=== PATIENT | male | born 1990 | race Caucasian/White ===

== ENCOUNTER 2017-11-29 14:43 | Emergency (ER) | payer MEDICAID | END 2017-11-29 16:53 | disposition home or self-care (01) | LOC: M ED 14:43 | DX: J02.9 Acute pharyngitis, unspecified (principal); K02.9 Dental caries, unspecified; B34.9 Viral infection, unspecified; F33.9 Major depressive disorder, recurrent, unspecified; F90.9 Attention-deficit hyperactivity disorder, unspecified type; Z88.8 Allergy status to other drugs, medicaments and biological substances; F17.210 Nicotine dependence, cigarettes, uncomplicated | CPT/HCPCS: 87880 ==

== ENCOUNTER → 2017-12-08 | Outpatient (CLI) | payer MEDICAID | LOC: M RAD 12:17 | DX: R05 Cough (principal) | CPT/HCPCS: 71046 ==

== ENCOUNTER 2018-02-18 15:32 | Emergency (ER) | payer MEDICAID, SELFPAY, OTHER ==
[2018-02-18] MEDS: ACETAMINOPHEN TAB 650MG DOSE (2X325MG) PO ×2 (17:30)
== END 2018-02-18 18:00 | disposition home or self-care (01) ==
LOC: M ED 15:32
DX: S60.221A Contusion of right hand, initial encounter (principal); W22.09XA Striking against other stationary object, initial encounter; Y92.410 Unspecified street and highway as the place of occurrence of the external cause; Z88.8 Allergy status to other drugs, medicaments and biological substances
CPT/HCPCS: 73130

== ENCOUNTER 2018-03-07 18:40 | Emergency (ER) | payer MEDICAID, SELFPAY ==
[2018-03-07] MEDS: NORCO, ANEXSIA 5/325MG TABLET (HYDROcodone/ACETAMINOPHEN) PO ×2 (21:03)
== END 2018-03-07 23:17 | disposition home or self-care (01) ==
LOC: M ED 23:17
DX: S00.83XA Contusion of other part of head, initial encounter (principal); W22.8XXA Striking against or struck by other objects, initial encounter; Y92.018 Other place in single-family (private) house as the place of occurrence of the external cause; I25.2 Old myocardial infarction; Z88.8 Allergy status to other drugs, medicaments and biological substances; F17.210 Nicotine dependence, cigarettes, uncomplicated
CPT/HCPCS: 70450

== ENCOUNTER 2018-05-28 11:04 | Emergency (ER) | payer MEDICAID, OTHER ==
[~2018-05-28] VITALS: Ht 185.4 cm; Wt 79.1 kg
[2018-05-28] MEDS ORDERED: NS 1,000 ML IV ONE (11:45)
[2018-05-28 12:08] LABS: BASO # 0.1 10^3/uL (0.0-0.2); BASO % 0.9 % (0.0-1.0); EOS # 0.2 10^3/uL (0.0-0.50); EOS % 4.1 % (0.0-3.0); HEMATOCRIT 41.1 % (42.0-52.0); HEMOGLOBIN 14.3 g/dl (13.5-17.5); LYMPH # 1.4 10^3/uL (1.5-6.5); MEAN CORPUSCULAR HEMOGLOBIN 31.2 pg (27.0-33.0); MEAN CORPUSCULAR HGB CONC 34.8 g/dl (32.0-36.5); MEAN CORPUSCULAR VOLUME 89.5 fl (80.0-96.0); MONO # 0.4 10^3/uL (0.0-0.8); MONO % 6.6 % (0.0-5.0); NEUTROPHILS # 3.7 10^3/uL (1.8-7.7); NEUTROPHILS % 64.1 % (36.0-66.0); PLATELET COUNT, AUTOMATED 230 10^3/uL (150-450); RED BLOOD COUNT 4.59 10^6/uL (4.30-6.10); WHITE BLOOD COUNT 5.8 10^3/uL (4.0-10.0)
--- NOTE | 2018-05-28 12:21 | REP ---
Portable chest: Single view. History: Chest pain Comparison study: December 08, 2017. Findings: The lungs are well inflated and clear. The pleural angles are sharp. Heart size is normal. EKG monitoring electrodes are seen. Pulmonary vasculature is not increased. No significant bony abnormality. Impression: Negative portable chest x-ray. Electronically Signed by Lalito Flynn MD 05/28/2018 12:13 P
[2018-05-28 12:26] LABS: INR 0.96; PROTHROMBIN TIME 12.9 SECONDS (12.1-14.4)
[2018-05-28 12:27] LABS: PARTIAL THROMBOPLASTIN TIME 30.5 SECONDS (25.4-37.6)
[2018-05-28 12:49] LABS: ALBUMIN 3.9 GM/DL (3.2-5.2); ALT/SGPT 26 U/L (12-78); BILIRUBIN,DIRECT 0.1 MG/DL (0.0-0.2); BILIRUBIN,TOTAL 0.3 MG/DL (0.2-1.0); BLOOD UREA NITROGEN 10 MG/DL (7-18); CALCIUM LEVEL 8.6 MG/DL (8.5-10.1); CARBON DIOXIDE LEVEL 27 MEQ/L (21-32); CHLORIDE LEVEL 106 MEQ/L (98-107); CK-MB VALUE MASS < 1.0 NG/ML (<3.6); CPK CREATINE PHOSPHOKINASE 228 U/L (39-308); FREE T4 0.92 NG/DL (0.76-1.46); GLOMERULAR FILTRATION RATE > 60.0 (>60); GLUCOSE, FASTING 90 MG/DL (70-100); LIPASE 68 U/L (73-393); MB/CK RELATIVE INDEX 0.44 (< OR =4); POTASSIUM SERUM 4.3 MEQ/L (3.5-5.1); SODIUM LEVEL 140 MEQ/L (136-145); THYROID STIMULATING HORMONE 0.744 uIU/ML (0.358-3.740); TOTAL PROTEIN 6.5 GM/DL (6.4-8.2); TROPONIN I < 0.02 NG/ML (< 0.10)
[2018-05-28 13:00] LABS: APPEARANCE, URINE CLEAR (CLEAR); BACTERIA, URINE AUTO NEGATIVE (NEGATIVE); BILIRUBIN, URINE AUTO NEGATIVE (NEGATIVE); BLOOD, URINE BLOOD NEGATIVE (NEGATIVE); COLOR, URINE YELLOW (YELLOW); GLUCOSE, URINE (UA) AUTO NEGATIVE (NEGATIVE); KETONE, URINE AUTO NEGATIVE (NEGATIVE); LEUKOCYTE ESTERASE, URINE AUTO NEGATIVE (NEGATIVE); NITRITE, URINE AUTO NEGATIVE (NEGATIVE); PROTEIN, URINE AUTO NEGATIVE (NEGATIVE); RBC, URINE AUTO 0 /HPF (0-3); SPECIFIC GRAVITY URINE AUTO 1.019 (1.002-1.035); SQUAMOUS EPITHELIAL CELL UR AU 0 /HPF (0-6); UROBILINOGEN, URINE AUTO 0.2 mg/dL (0.0-2.0); WBC, URINE AUTO 0 /HPF (0-3)
[2018-05-28] MEDS ORDERED: ISOVUE-370 76% 100ML VIAL (Q9967) As Ordered ONE (13:16)
[2018-05-28 13:45] VITALS: BP 111/68
--- NOTE | 2018-05-28 14:02 | REP ---
CT pulmonary angiogram: With IV contrast. History: Chest pain Comparison studies: No comparison study. Contrast dose: 75 cc's of Isovue [address] technique: Helical scanning is acquired and overlapping 1.5 mm and contiguous 3 mm axial images are reformatted. In addition, maximum intensity projection and multiplanar re-formation images are generated in sagittal and coronal imaging projections. CT pulmonary angiographic findings: There is good opacification of the pulmonary arterial tree. There is no CT evidence of pulmonary embolus. Maximal intensity projection images show no filling defect or vessel cutoff. The thoracic aorta enhances homogeneously as well. There is no evidence of aneurysm or dissection. No mediastinal mass or adenopathy is observed. No pleural or pericardial effusion is seen. The lung archuleta are clear. There is a granulomatous calcification in the left upper lobe peripherally. No significant bony abnormality is appreciated. Impression: No CT evidence of pulmonary embolus. Negative CT pulmonary angiogram with IV contrast. Electronically Signed by Lalito Flynn MD 05/28/2018 01:53 P
--- NOTE | 2018-05-28 20:06 | ECGEPIP ---
Stationary ECG Study [facility] - ED Test Date: 2018-05-28 Pat Name: REMY VERONICA Department: Room: - Gender: M Manager Of Engineering: steve : 1990 Requested By: Zac Taveras Order Number: [id number] Reading MD: Zac Taveras Measurements Intervals [place] Rate: 56 P: 56 IN: 177 QRS: 54 QRSD: 96 T: 30 QT: 367 QTc: 355 Interpretive Statements SINUS BRADYCARDIA DIFFUSE MILD ST ELEVATION - ?EARLY REPOLARIZATION NO OLD ECG FOR COMAPRISON Electronically Signed On 05-28-2018 20:05:54 EST by Zac Taveras
== END 2018-05-28 14:31 | disposition home or self-care (01) ==
LOC: M ED 11:04
DX: T75.4XXA Electrocution, initial encounter (principal); R07.9 Chest pain, unspecified; R11.0 Nausea; R06.02 Shortness of breath; X58.XXXA Exposure to other specified factors, initial encounter; Y92.89 Other specified places as the place of occurrence of the external cause; I25.2 Old myocardial infarction; F90.9 Attention-deficit hyperactivity disorder, unspecified type; F43.10 Post-traumatic stress disorder, unspecified; F41.9 Anxiety disorder, unspecified; F32.9 Major depressive disorder, single episode, unspecified; F91.3 Oppositional defiant disorder; F17.200 Nicotine dependence, unspecified, uncomplicated; Z91.040 Latex allergy status; Z88.8 Allergy status to other drugs, medicaments and biological substances
CPT/HCPCS: 71045; 71275; 80048; 80076; 81001; 81002; 82550; 82553; 83690; 84439; 84443; 85025; 85610; 85730; 93005; 93041; 94760; 99285; Q9967

== ENCOUNTER → 2018-08-23 | Outpatient (CLI) | payer OTHER ==
[~2018-08-23] MED LIST: PENI500T PO; PERC5TAB12 PO
--- NOTE | 2018-08-23 20:18 | REP ---
Cervical spine series: Limited study three views. History: Chronic neck pain. Findings: There is straightening of the normal cervical lordosis. Vertebral body heights and disc spaces are maintained. Alignment is normal. Pedicles and posterior elements are intact. Prevertebral soft tissues are unremarkable. Open mouth odontoid and AP views are unremarkable. Impression: Straightening. Otherwise negative radiographs of the cervical spine. Electronically Signed by Lalito Flynn MD 08/24/2018 07:40 A
== END ==
LOC: M RAD 17:52
PROVIDERS: ATTEND Family Medicine Addiction Medicine
DX: M54.2 Cervicalgia (principal)

== ENCOUNTER 2018-08-25 08:56 | Emergency (ER) | payer OTHER ==
[~2018-08-25] VITALS: Ht 185.4 cm; Wt 78.8 kg
[2018-08-25 09:00] VITALS: BP 131/70
[2018-08-25] MEDS ORDERED: PENI500T PO (09:23)
[2018-08-25] MEDS ORDERED: PERC5TAB12 PO (09:24)
== END 2018-08-25 09:36 | disposition home or self-care (01) ==
LOC: M ED 08:56
DX: K04.7 Periapical abscess without sinus (principal); K02.9 Dental caries, unspecified; F17.200 Nicotine dependence, unspecified, uncomplicated; Z98.890 Other specified postprocedural states; Z88.8 Allergy status to other drugs, medicaments and biological substances; Z91.040 Latex allergy status

== ENCOUNTER → 2018-09-15 | Outpatient (CLI) | payer OTHER ==
--- NOTE | 2018-09-15 10:41 | REP ---
RIGHT KNEE, FIVE VIEWS: There is no evidence of an acute fracture, dislocation or intrinsic bone disease. The joint spaces are unremarkable. IMPRESSION: No fracture or dislocation. Electronically Signed by Redd Leon MD 09/15/2018 11:37 A
== END ==
LOC: M ADAMS 09:33
PROVIDERS: ATTEND Physician Assistant Medical
DX: M25.561 Pain in right knee (principal)

== ENCOUNTER → 2019-01-16 | Outpatient (CLI) | payer OTHER ==
[~2019-01-16] MED LIST changes: +CLIN150C14 PO; +MAGICMW SSP
--- NOTE | 2019-01-16 12:41 | REP ---
Clinical: Chronic left shoulder pain . Technique: Internal rotation, external rotation, and Y view left shoulder . Findings: No acute fracture or dislocation. The acromioclavicular and glenohumeral joints are intact. No periarticular calcifications or degenerative changes are appreciated. Sub acromial space is normal. Surrounding soft tissues are unremarkable. Impression: Normal left shoulder radiographs. Electronically Signed by Chris Patel MD 01/16/2019 12:32 P
== END ==
LOC: M WUC 12:19
PROVIDERS: ATTEND Family Medicine
DX: M25.512 Pain in left shoulder (principal)

== ENCOUNTER 2019-01-30 21:45 | Emergency (ER) | payer OTHER ==
[2019-01-30 22:00] VITALS: BP 127/83
== END 2019-01-30 22:27 | disposition home or self-care (01) ==
LOC: M ED 21:45
DX: F43.20 Adjustment disorder, unspecified (principal); F79 Unspecified intellectual disabilities; Z88.8 Allergy status to other drugs, medicaments and biological substances; Z91.040 Latex allergy status; F17.210 Nicotine dependence, cigarettes, uncomplicated

== ENCOUNTER 2019-07-18 10:09 | Emergency (ER) | payer OTHER, SELFPAY ==
[~2019-07-18] VITALS: Ht 185.4 cm; Wt 78.3 kg
[2019-07-18] MEDS ORDERED: DOXYCYCLINE HYCLATE 100 MG TAB PO ONE (11:30)
[2019-07-18] MEDS ORDERED: ACETAMINOPHEN 325 MG TAB PO ONE (11:30)
[2019-07-18] MEDS ORDERED: DOXY100C37 PO (11:31)
[2019-07-18 11:38] VITALS: BP 121/77
== END 2019-07-18 11:40 | disposition home or self-care (01) ==
LOC: M ED 10:09
DX: H60.12 Cellulitis of left external ear (principal); E11.9 Type 2 diabetes mellitus without complications; F12.10 Cannabis abuse, uncomplicated; F17.200 Nicotine dependence, unspecified, uncomplicated; F32.9 Major depressive disorder, single episode, unspecified; F41.9 Anxiety disorder, unspecified; F43.10 Post-traumatic stress disorder, unspecified; Z79.84 Long term (current) use of oral hypoglycemic drugs; Z88.6 Allergy status to analgesic agent; Z91.040 Latex allergy status

== ENCOUNTER 2019-07-31 20:30 | Emergency (ER) | payer MEDICAID, SELFPAY ==
[~2019-07-31] VITALS: Ht 185.4 cm; Wt 77.2 kg
[~2019-07-31 20:30] MED LIST changes: +DOXY100C37 PO
[2019-07-31] MEDS ORDERED: PERCOCET 5MG/325MG TAB PO ONE (21:45)
[2019-07-31] MEDS ORDERED: PERC5TAB12 PO (22:08)
[2019-07-31 22:17] VITALS: BP 117/63
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
== END 2019-07-31 22:19 | disposition home or self-care (01) ==
LOC: M ED 20:30
DX: S50.11XA Contusion of right forearm, initial encounter (principal); V86.55XA Driver of 3- or 4- wheeled all-terrain vehicle (ATV) injured in nontraffic accident, initial encounter; Y92.89 Other specified places as the place of occurrence of the external cause; E11.9 Type 2 diabetes mellitus without complications; F42.9 Obsessive-compulsive disorder, unspecified; F43.10 Post-traumatic stress disorder, unspecified; F91.3 Oppositional defiant disorder; F90.9 Attention-deficit hyperactivity disorder, unspecified type; Z88.8 Allergy status to other drugs, medicaments and biological substances; Z91.040 Latex allergy status

== ENCOUNTER → 2019-08-07 | Outpatient (REF) | payer MEDICAID, SELFPAY ==
[2019-08-07 13:23] LABS: BASO # 0.1 10^3/uL (0.0-0.2); BASO % 1.1 % (0.0-1.0); EOS # 0.3 10^3/uL (0.0-0.5); EOS % 5.6 % (0.0-3.0); HEMATOCRIT 50.5 % (42.0-52.0); HEMOGLOBIN 17.2 g/dl (13.5-17.5); LYMPH # 1.7 10^3/uL (1.5-5.0); LYMPH % 28.3 % (24.0-44.0); MEAN CORPUSCULAR HEMOGLOBIN 31.4 pg (27.0-33.0); MEAN CORPUSCULAR HGB CONC 34.1 g/dl (32.0-36.5); MEAN CORPUSCULAR VOLUME 92.3 fl (80.0-96.0); MONO # 0.4 10^3/uL (0.0-0.8); NEUTROPHILS # 3.5 10^3/uL (1.5-8.5); NEUTROPHILS % 57.5 % (36.0-66.0); PLATELET COUNT, AUTOMATED 266 10^3/uL (150-450); RED BLOOD COUNT 5.47 10^6/uL (4.30-6.10); WHITE BLOOD COUNT 6.1 10^3/uL (4.0-10.0)
[2019-08-07 13:30] LABS: ALBUMIN 4.2 GM/DL (3.2-5.2); ALT/SGPT 75 U/L (12-78); BILIRUBIN,TOTAL 0.7 MG/DL (0.2-1.0); BLOOD UREA NITROGEN 11 MG/DL (7-18); CALCIUM LEVEL 9.3 MG/DL (8.5-10.1); CARBON DIOXIDE LEVEL 30 MEQ/L (21-32); CHLORIDE LEVEL 105 MEQ/L (98-107); CHOLESTEROL LEVEL 208 MG/DL (<200); CHOLESTEROL RISK RATIO 5.333 (<5); CREATININE FOR GFR 0.88 MG/DL (0.70-1.30); FREE T4 1.02 NG/DL (0.76-1.46); GLOMERULAR FILTRATION RATE > 60.0 (>60); GLUCOSE, FASTING 110 MG/DL (70-100); HDL CHOLESTEROL 39 MG/DL (>40); LDL CHOLESTEROL 136 MG/DL (<100); NON-HDL-C 169 MG/DL; POTASSIUM SERUM 4.6 MEQ/L (3.5-5.1); SODIUM LEVEL 138 MEQ/L (136-145); TOTAL PROTEIN 7.9 GM/DL (6.4-8.2); TRIGLYCERIDES LEVEL 163 MG/DL (<150)
[2019-08-07 13:32] LABS: TOTAL 25(OH) VITAMIN D 13.5 NG/ML (30.0-100.0)
[2019-08-07 13:36] LABS: HEMOGLOBIN A1c 5.7 %
== END ==
LOC: M LAB REF 12:59
PROVIDERS: ATTEND Physician Assistant
DX: E11.9 Type 2 diabetes mellitus without complications (principal); F40.10 Social phobia, unspecified

== ENCOUNTER → 2019-10-28 | Outpatient (CLI) | payer MEDICAID | LOC: M LABSMTC 10:29 | PROVIDERS: ATTEND Anesthesiology | DX: Z03.818 Encounter for observation for suspected exposure to other biological agents ruled out (principal); Z11.59 Encounter for screening for other viral diseases | CPT/HCPCS: C9803; U0003 ==

== ENCOUNTER → 2019-10-28 | Outpatient (CLI) | payer OTHER ==
[~2019-10-28] MED LIST changes: -CLIN150C14 PO; +CLIN150C15 PO; +ONDA4TAB6 PO; +ULTR50TA8 PO
[2019-10-28 10:10] LABS: HEMATOCRIT 46.7 % (42.0-52.0); MEAN CORPUSCULAR HEMOGLOBIN 30.8 pg (27.0-33.0); MEAN CORPUSCULAR HGB CONC 34.3 g/dl (32.0-36.5); MEAN CORPUSCULAR VOLUME 89.8 fl (80.0-96.0); PLATELET COUNT, AUTOMATED 210 10^3/uL (150-450); WHITE BLOOD COUNT 7.7 10^3/uL (4.0-10.0)
[2019-10-28 10:37] LABS: BLOOD UREA NITROGEN 10 MG/DL (7-18); CALCIUM LEVEL 9.2 MG/DL (8.5-10.1); CARBON DIOXIDE LEVEL 30 MEQ/L (21-32); CHLORIDE LEVEL 105 MEQ/L (98-107); CREATININE FOR GFR 0.92 MG/DL (0.70-1.30); GLOMERULAR FILTRATION RATE > 60.0 (>60); GLUCOSE, FASTING 98 MG/DL (70-100); POTASSIUM SERUM 3.8 MEQ/L (3.5-5.1); SODIUM LEVEL 139 MEQ/L (136-145)
== END ==
LOC: M LAB 09:26
PROVIDERS: ATTEND Orthopaedic Surgery
DX: Z01.818 Encounter for other preprocedural examination (principal)

== ENCOUNTER 2019-10-31 15:31 | Day surgery (SDC) | payer OTHER ==
[~2019-10-31] VITALS: Ht 185.4 cm; Wt 75.3 kg
[~2019-10-31 15:31] MED LIST changes: +CLIN150C14 PO; -CLIN150C15 PO; +LR 1,000 ML IV SCH; -ONDA4TAB6 PO; -ULTR50TA8 PO; +ceFAZolin SOD 2 GM in IV 1 EA IV ONE
[2019-10-31 15:57] LABS: HEMATOCRIT 44.8 % (42.0-52.0); HEMOGLOBIN 15.5 g/dl (13.5-17.5); MEAN CORPUSCULAR HEMOGLOBIN 30.7 pg (27.0-33.0); MEAN CORPUSCULAR HGB CONC 34.6 g/dl (32.0-36.5); MEAN CORPUSCULAR VOLUME 88.7 fl (80.0-96.0); PLATELET COUNT, AUTOMATED 221 10^3/uL (150-450); RED BLOOD COUNT 5.05 10^6/uL (4.30-6.10); WHITE BLOOD COUNT 8.7 10^3/uL (4.0-10.0)
[2019-10-31 16:25] LABS: BLOOD UREA NITROGEN 11 MG/DL (7-18); CALCIUM LEVEL 9.3 MG/DL (8.5-10.1); CARBON DIOXIDE LEVEL 29 MEQ/L (21-32); CHLORIDE LEVEL 104 MEQ/L (98-107); CREATININE FOR GFR 0.96 MG/DL (0.70-1.30); GLOMERULAR FILTRATION RATE > 60.0 (>60); GLUCOSE, FASTING 83 MG/DL (70-100); POTASSIUM SERUM 3.8 MEQ/L (3.5-5.1); SODIUM LEVEL 138 MEQ/L (136-145)
[2019-10-31] MEDS ORDERED: propofoL 200 MG/20 ML VIAL As Ordered ONE ×3 (17:41→19:37)
[2019-10-31] MEDS ORDERED: ONDANSETRON 4MG/2ML VIAL As Ordered ONE (17:42)
[2019-10-31] MEDS ORDERED: LIDOCAINE 2% 100MG/5ML SDV (FOR ANES.) As Ordered ONE (17:42)
[2019-10-31] MEDS ORDERED: fentaNYL 100 MCG/2 ML INJECTION (J3010) As Ordered ONE ×2 (17:42→18:32)
[2019-10-31] MEDS ORDERED: dexameTHASONE 4 MG/ML 1ML VIAL (J1100 PER 1MG) As Ordered ONE (17:42)
[2019-10-31] MEDS ORDERED: MIDAZOLAM INJ 2MG/2ML VIAL (J2250 PER 1MG) As Ordered ONE ×3 (18:32→21:56)
[2019-10-31] MEDS ORDERED: MIDAZOLAM INJ 2MG/2ML VIAL (J2250 PER 1MG) IV ONE (20:30)
[2019-10-31] MEDS ORDERED: fentaNYL 100 MCG/2 ML INJECTION (J3010) IV ONE (20:30)
[2019-10-31] MEDS ORDERED: ACETAMINOPHEN 1000MG 100ML IV BTL (OFIRMEV) (J0131 PER 10MG) As Ordered ONE (21:55)
[2019-10-31] MEDS ORDERED: BUPIVACAINE HCL 0.5% 10ML VIAL As Ordered ONE (22:03)
[2019-10-31] MEDS ORDERED: fentaNYL 100 MCG/2 ML INJECTION (J3010) IV PRN (23:00)
[2019-10-31] MEDS ORDERED: HYDROMORPHONE HCL 0.5 MG/ 0.5 ML SYRINGE (J1170 PER 1) IV PRN (23:00)
[2019-10-31] MEDS ORDERED: LR 1,000 ML IV SCH ×2 (23:00)
[2019-10-31] MEDS ORDERED: ONDANSETRON 4MG/2ML VIAL IV PRN (23:00)
[2019-10-31] MEDS ORDERED: oxyCODONE 5MG TAB PO PRN (23:00)
[2019-10-31 23:43] VITALS: BP 112/77
--- NOTE | 2019-11-01 08:28 | REP ---
LEFT KNEE: THREE VIEWS. INTRAOPERATIVE IMAGING. HISTORY: Left knee arthroscopic surgery. 7.8 seconds of fluoroscopy time is reported. FINDINGS: A sequence of three fluoroscopically obtained intraprocedural spot radiographs of the knee document procedural manipulation. No laterality markers are visible. Electronically Signed by Lalito Flynn MD 11/01/2019 10:32 A
--- NOTE | 2019-11-04 16:10 | RO ---
DATE OF SURGERY: 10/31/2019 PREOPERATIVE DIAGNOSES: 1. Recurrent left knee patellar instability. 2. Left knee patellar chondromalacia. POSTOPERATIVE DIAGNOSES: 1. Recurrent left knee patellar instability. 2. Left knee patellar chondromalacia. PROCEDURE: 1. Left knee diagnostic arthroscopy. 2. Left knee open medial patellofemoral ligament reconstruction with allograft. SURGEON: Dr. Emmanuel Casey MONITOR WORKER: JENAE Celeste ANESTHESIA: General with preoperative nerve block. IV FLUIDS: Lactated Ringer's. ESTIMATED BLOOD LOSS: 5 mL. IMPLANTS: Arthrex 3 mm suture tack times two and Arthrex 5.5 mm corkscrew times one and gracilis allograft. CLOSURE: Nylon. DESCRIPTION OF PROCEDURE: Patient identified in the preoperative holding area. The left leg was marked by myself. He had an adductor canal block by anesthesia. He was brought to the operating room and placed supine on a well-padded OR table. General anesthesia was induced. He received appropriate IV antibiotics within 1 hour of incision. Exam under anesthesia revealed range of motion from zero to 140 degrees stable to varus-valgus stress, grade 1 A Hermelindo, negative posterior drawer. He had three quadrants of lateral patellar mobility to soft endpoint. Negative J sign. A well-padded tourniquet was applied a left side. The left leg was then prepped and draped in normal sterile fashion with Chloraprep from the toes up to the tourniquet. Prior to incision, time-out was performed per hospital protocol. Brittany Felipe was present for the entire procedure and participated in all essential portions of procedure. This included patient positioning and draping, holding retractors and assisting with drilling to place anchors and assisted with suturing the allograft on the back table, and performed the wound closure and applying the dressing. The left leg was exsanguinated with an Esmarch bandage and tourniquet inflated to 275 mmHg. A standard anterolateral portal created with an 11-blade. 30 degree arthroscope was introduced into the joint. There was some slightly hazy fluid consistent with a small inflammatory effusion. Diagnostic arthroscopy carried out revealing diffuse mild to moderate synovitis. There was only minimal chondromalacia in the patella. Trochlea was in good condition. No loose bodies. Medial compartment was entered where there was grade 1 chondromalacia in the medial femoral condyle. Medial meniscus was intact without tearing, anterior cruciate ligament (ACL) was intact, and then the lateral compartment inspected. No lateral meniscus tears. No significant chondromalacia. The knee was irrigated and drained. We then proceeded with a mid longitudinal incision with a 15-blade along the medial border of patella. Sharp dissection down to the patella. An anterior periosteal flap was raised. Hemostat was used to develop the plane between layers two and three of the medial retinaculum extending towards the medial epicondyle. I then used a rongeur to create a trough in the medial border of patella. I drilled and placed two Arthrex 3 mm double-loaded suture tack anchors. One at the equator, one a centimeter proximal. The allograft on the back table had 2-0 FiberWire whipstitch to each end. The central portion of the allograft was then secured to the medial border of patella using a curve free needle and the sutures from the anchors. All four limbs of suture were passed and then knots tied by hand, which secured the graft nicely to the trough. Excess suture trimmed and discarded. The tails of the allograft were then passed using a passing suture out the medial incision. A separate incision made a 15-blade between the adductor tubercle and medial condyle. Dissection with extra cautery down to the deep fascia. The patient had very little adipose tissues. He had good bony anatomy. The K-wire was placed at the medial femoral condyle between the adductor tubercle and medial epicondyle and appropriate position confirmed on AP and lateral views using the large C-arm. Relative to the final C-arm image on the lateral view the K-wire was just anterior from the anatomic position, so the punch for the corkscrew anchor was placed just posterior to that and then the tap used. A 5.5 corkscrew anchor was placed with excellent fixation. Next, these sutures from corkscrew were used to tie down each limb of the allograft with the knee in 40 degrees of flexion. It was up on a triangle. Prior to tying knots, I did assess lateral patellar translation and he was found to have just under two quadrants of lateral patellar mobility at zero, 10, 20, 30 and 40 degrees. A total of five locking passes were made with the FiberWire and TigerWire. The free limb was used to reduce the tendon to the anchor and then knots tied by hand. Excess graft and suture was cut and discarded. All incisions were extensively irrigated. The arthrotomy was closed with #0 Vicryl suture in a [id number] fashion. Final check of lateral patellar translation revealed unchanged 1-1/2 quadrants of lateral patellar mobility. I flexed the knee up to 120 degrees. There was no change. We then closed with #2-0 Vicryl, running #3-0 nylon. The portal was closed with nylon. I injected 10 mL of 0.5% Marcaine without epinephrine at the incisions. Bulky sterile dressing applied. Tourniquet let down at 76 minutes. He was carefully placed into his knee brace locked in extension. At the time of this dictation, he has been extubated and shortly he will be transferred to the postanesthesia care unit (PACU).
== END 2019-10-31 23:56 | disposition home or self-care (01) ==
LOC: M SDC 15:31
PROVIDERS: ATTEND Orthopaedic Surgery
DX: M25.362 Other instability, left knee (principal); M94.262 Chondromalacia, left knee; E11.9 Type 2 diabetes mellitus without complications; F43.10 Post-traumatic stress disorder, unspecified; F42.9 Obsessive-compulsive disorder, unspecified; F41.9 Anxiety disorder, unspecified; F32.9 Major depressive disorder, single episode, unspecified; F60.9 Personality disorder, unspecified
CPT/HCPCS: 27427; 29870; 36415; 64447; 76000; 80048; 85027; C1713; C1762; J0131; J0690; J1100; J2250; J2405; J3010

== ENCOUNTER → 2019-11-10 | Outpatient (REF) | payer OTHER, MEDICAID ==
[~2019-11-10] MED LIST changes: -LR 1,000 ML IV SCH; -ceFAZolin SOD 2 GM in IV 1 EA IV ONE
[2019-11-10 13:14] LABS: ALBUMIN 4.4 GM/DL (3.2-5.2); ALT/SGPT 34 U/L (12-78); BILIRUBIN,TOTAL 0.3 MG/DL (0.2-1.0); BLOOD UREA NITROGEN 16 MG/DL (7-18); CALCIUM LEVEL 9.5 MG/DL (8.5-10.1); CARBON DIOXIDE LEVEL 28 MEQ/L (21-32); CHLORIDE LEVEL 106 MEQ/L (98-107); CHOLESTEROL LEVEL 217 MG/DL (<200); CREATININE FOR GFR 0.86 MG/DL (0.70-1.30); GLOMERULAR FILTRATION RATE > 60.0 (>60); GLUCOSE, FASTING 99 MG/DL (70-100); HDL CHOLESTEROL 35 MG/DL (>40); LDL CHOLESTEROL 146 MG/DL (<100); NON-HDL-C 182 MG/DL; POTASSIUM SERUM 4.2 MEQ/L (3.5-5.1); SODIUM LEVEL 139 MEQ/L (136-145); TOTAL PROTEIN 7.8 GM/DL (6.4-8.2); TRIGLYCERIDES LEVEL 179 MG/DL (<150)
[2019-11-10 13:15] LABS: BASO # 0.1 10^3/uL (0.0-0.2); EOS # 0.4 10^3/uL (0.0-0.5); HEMOGLOBIN 16.7 g/dl (13.5-17.5); LYMPH # 1.4 10^3/uL (1.5-5.0); LYMPH % 19.7 % (24.0-44.0); MEAN CORPUSCULAR HEMOGLOBIN 30.9 pg (27.0-33.0); MEAN CORPUSCULAR HGB CONC 33.4 g/dl (32.0-36.5); MEAN CORPUSCULAR VOLUME 92.4 fl (80.0-96.0); MONO # 0.4 10^3/uL (0.0-0.8); MONO % 5.6 % (0.0-5.0); NEUTROPHILS % 68.3 % (36.0-66.0); PLATELET COUNT, AUTOMATED 292 10^3/uL (150-450); RED BLOOD COUNT 5.41 10^6/uL (4.30-6.10); WHITE BLOOD COUNT 7.3 10^3/uL (4.0-10.0)
[2019-11-10 14:14] LABS: HEMOGLOBIN A1c 5.9 %
== END ==
LOC: M LAB REF 12:26
PROVIDERS: ATTEND Nurse Practitioner Family
DX: E78.5 Hyperlipidemia, unspecified (principal); E11.9 Type 2 diabetes mellitus without complications; M25.512 Pain in left shoulder

== ENCOUNTER 2019-11-12 00:16 | Emergency (ER) | payer MEDICAID, OTHER ==
[~2019-11-12] VITALS: Ht 185.4 cm; Wt 76.4 kg
[2019-11-12 00:16] VITALS: BP 132/67
[2019-11-12] MEDS ORDERED: traMADol 50 MG TAB PO ONE (03:30)
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
== END 2019-11-12 04:19 | disposition home or self-care (01) ==
LOC: M ED 00:16
DX: G89.18 Other acute postprocedural pain (principal); S89.82XA Other specified injuries of left lower leg, initial encounter; Z88.8 Allergy status to other drugs, medicaments and biological substances; Z91.040 Latex allergy status; W18.09XA Striking against other object with subsequent fall, initial encounter; Y92.009 Unspecified place in unspecified non-institutional (private) residence as the place of occurrence of the external cause; Y93.89 Activity, other specified; Y99.8 Other external cause status; E11.9 Type 2 diabetes mellitus without complications; F31.9 Bipolar disorder, unspecified; F41.9 Anxiety disorder, unspecified; Z91.14 Patient's other noncompliance with medication regimen

== ENCOUNTER 2019-12-12 21:21 | Emergency (ER) | payer OTHER | END 2019-12-12 23:30 | disposition left against medical advice (07) | LOC: M ED 21:21 | DX: Z53.21 Procedure and treatment not carried out due to patient leaving prior to being seen by health care provider (principal) ==

== ENCOUNTER 2020-01-27 17:07 | Emergency (ER) | payer OTHER ==
[~2020-01-27] VITALS: Ht 185.4 cm; Wt 75.8 kg
[2020-01-27 17:07] VITALS: BP 127/65
== END 2020-01-27 17:47 | disposition left against medical advice (07) ==
LOC: M ED 17:07
DX: Z53.21 Procedure and treatment not carried out due to patient leaving prior to being seen by health care provider (principal)

== ENCOUNTER 2020-02-01 19:31 | Emergency (ER) | payer OTHER ==
[~2020-02-01] VITALS: Ht 185.4 cm; Wt 75.3 kg
[2020-02-01 20:11] LABS: BASO # 0.1 10^3/uL (0.0-0.2); BASO % 0.9 % (0.0-1.0); EOS # 0.4 10^3/uL (0.0-0.5); EOS % 4.6 % (0.0-3.0); HEMATOCRIT 42.8 % (42.0-52.0); LYMPH # 1.5 10^3/uL (1.5-5.0); LYMPH % 19.4 % (24.0-44.0); MEAN CORPUSCULAR VOLUME 91.3 fl (80.0-96.0); MONO # 0.4 10^3/uL (0.0-0.8); MONO % 5.5 % (0.0-5.0); NEUTROPHILS # 5.4 10^3/uL (1.5-8.5); NEUTROPHILS % 69.3 % (36.0-66.0); PLATELET COUNT, AUTOMATED 219 10^3/uL (150-450); RED BLOOD COUNT 4.69 10^6/uL (4.30-6.10); WHITE BLOOD COUNT 7.8 10^3/uL (4.0-10.0)
[2020-02-01] MEDS ORDERED: ONDANSETRON 4 MG ORAL DISINTEGRATING TAB PO ONE (20:15)
[2020-02-01 20:39] LABS: ALBUMIN 4.4 GM/DL (3.2-5.2); BILIRUBIN,DIRECT 0.1 MG/DL (0.0-0.2); BILIRUBIN,TOTAL 0.4 MG/DL (0.2-1.0); TOTAL PROTEIN 7.6 GM/DL (6.4-8.2)
--- NOTE | 2020-02-01 21:08 | REPVR ---
PROCEDURE INFORMATION: Exam: XR Abdomen, 1 View Exam date and time: 02/01/2020 8:49 PM Age: 29 years old Clinical indication: Abdominal pain; Acute TECHNIQUE: Imaging protocol: XR of the abdomen. Views: Frontal supine view of the abdomen. 1 View. COMPARISON: No relevant prior studies available. FINDINGS: Lungs: Degree of lung inflation is normal. No evidence of pulmonary edema. No focal consolidation or parenchymal lung mass. Pleural space: No pleural effusion or pneumothorax. Heart/Mediastinum: Cardiac silhouette appears normal. No adenopathy or hilar mass. Gastrointestinal tract: Normal. No bowel dilation. Bones/joints: Osseous structures show no concerning abnormality. IMPRESSION: No acute or focal cardiopulmonary process. Electronically signed by: Emeterio Emerson On 02/01/2020 21:07:54 PM
[2020-02-01] MEDS ORDERED: ONDA4TAB6 PO (21:14)
[2020-02-01 21:16] VITALS: BP 116/65
== END 2020-02-01 21:20 | disposition home or self-care (01) ==
LOC: M ED 19:31
DX: R11.2 Nausea with vomiting, unspecified (principal); R10.9 Unspecified abdominal pain; F42.9 Obsessive-compulsive disorder, unspecified; F43.10 Post-traumatic stress disorder, unspecified; F90.9 Attention-deficit hyperactivity disorder, unspecified type; Z88.8 Allergy status to other drugs, medicaments and biological substances; Z91.040 Latex allergy status; F17.210 Nicotine dependence, cigarettes, uncomplicated
CPT/HCPCS: 36415; 74018; 80047; 80076; 83690; 85025; 99284; Q0162

== ENCOUNTER → 2020-02-02 | Outpatient (CLI) | payer OTHER ==
[~2020-02-02] MED LIST changes: +ONDA4TAB6 PO
[2020-02-02 09:48] LABS: BASO # 0.1 10^3/uL (0.0-0.2); BASO % 0.9 % (0.0-1.0); EOS # 0.5 10^3/uL (0.0-0.5); EOS % 7.4 % (0.0-3.0); HEMATOCRIT 48.2 % (42.0-52.0); HEMOGLOBIN 16.2 g/dl (13.5-17.5); LYMPH # 1.6 10^3/uL (1.5-5.0); LYMPH % 24.3 % (24.0-44.0); MEAN CORPUSCULAR HEMOGLOBIN 31.2 pg (27.0-33.0); MEAN CORPUSCULAR HGB CONC 33.6 g/dl (32.0-36.5); MEAN CORPUSCULAR VOLUME 92.7 fl (80.0-96.0); MONO # 0.5 10^3/uL (0.0-0.8); MONO % 6.8 % (0.0-5.0); NEUTROPHILS % 60.1 % (36.0-66.0); PLATELET COUNT, AUTOMATED 246 10^3/uL (150-450); WHITE BLOOD COUNT 6.7 10^3/uL (4.0-10.0)
[2020-02-02 10:01] LABS: HEMOGLOBIN A1c 5.1 %
[2020-02-02 10:21] LABS: ALBUMIN 4.3 GM/DL (3.2-5.2); ALT/SGPT 39 U/L (12-78); BILIRUBIN,DIRECT 0.2 MG/DL (0.0-0.2); BILIRUBIN,TOTAL 0.6 MG/DL (0.2-1.0); BLOOD UREA NITROGEN 9 MG/DL (7-18); CALCIUM LEVEL 9.5 MG/DL (8.5-10.1); CARBON DIOXIDE LEVEL 28 MEQ/L (21-32); CHLORIDE LEVEL 105 MEQ/L (98-107); CHOLESTEROL LEVEL 189 MG/DL (<200); CHOLESTEROL RISK RATIO 3.375 (<5); CREATININE FOR GFR 0.82 MG/DL (0.70-1.30); GLOMERULAR FILTRATION RATE > 60.0 (>60); GLUCOSE, FASTING 89 MG/DL (70-100); HDL CHOLESTEROL 56 MG/DL (>40); LDL CHOLESTEROL 114 MG/DL (<100); NON-HDL-C 133 MG/DL; POTASSIUM SERUM 3.8 MEQ/L (3.5-5.1); SODIUM LEVEL 140 MEQ/L (136-145); THYROID STIMULATING HORMONE 0.739 uIU/ML (0.358-3.740); TOTAL PROTEIN 7.5 GM/DL (6.4-8.2); TRIGLYCERIDES LEVEL 95 MG/DL (<150)
--- NOTE | 2020-02-03 06:08 | ECGEPIP ---
[facility] Test Date: 2020-02-02 Pat Name: REMY VERONICA Department: Room: - Gender: Male Dental Surgeon: CRISTIANO : 1990 Requested By: Rosie TRAN Order Number: [id number] Reading MD: Joshua Chiu Measurements Intervals [place] Rate: 57 P: [place]: 0 QRS: 60 QRSD: 10 T: 60 QT: 324 QTc: 318 Interpretive Statements Normal sinus rhythm Incomplete right bundle branch block No significant change when compared to prior tracing of 05/28/2018 Electronically Signed on 02-03-2020 6:08:35 EDT by Joshua Chiu
== END ==
LOC: M LAB 08:24
PROVIDERS: ATTEND Registered Nurse
DX: F43.20 Adjustment disorder, unspecified (principal); I45.19 Other right bundle-branch block

== ENCOUNTER → 2020-02-20 | Outpatient (REF) | payer OTHER, MEDICAID ==
[2020-02-20 16:55] LABS: BASO # 0.1 10^3/uL (0.0-0.2); BASO % 1.3 % (0.0-1.0); EOS # 0.5 10^3/uL (0.0-0.5); EOS % 8.2 % (0.0-3.0); LYMPH # 1.4 10^3/uL (1.5-5.0); LYMPH % 25.2 % (24.0-44.0); MEAN CORPUSCULAR HEMOGLOBIN 30.5 pg (27.0-33.0); MEAN CORPUSCULAR HGB CONC 33.3 g/dl (32.0-36.5); MEAN CORPUSCULAR VOLUME 91.6 fl (80.0-96.0); MONO # 0.4 10^3/uL (0.0-0.8); MONO % 6.5 % (0.0-5.0); NEUTROPHILS # 3.2 10^3/uL (1.5-8.5); NEUTROPHILS % 58.4 % (36.0-66.0); PLATELET COUNT, AUTOMATED 246 10^3/uL (150-450); RED BLOOD COUNT 5.24 10^6/uL (4.30-6.10); WHITE BLOOD COUNT 5.5 10^3/uL (4.0-10.0)
[2020-02-20 17:12] LABS: HEMOGLOBIN A1c 5.2 %
[2020-02-20 17:18] LABS: ALBUMIN 4.3 GM/DL (3.2-5.2); ALT/SGPT 33 U/L (12-78); BILIRUBIN,TOTAL 0.5 MG/DL (0.2-1.0); BLOOD UREA NITROGEN 10 MG/DL (7-18); CALCIUM LEVEL 9.1 MG/DL (8.5-10.1); CARBON DIOXIDE LEVEL 30 MEQ/L (21-32); CHLORIDE LEVEL 104 MEQ/L (98-107); CHOLESTEROL LEVEL 191 MG/DL (<200); CHOLESTEROL RISK RATIO 4.063 (<5); CREATININE FOR GFR 0.93 MG/DL (0.70-1.30); GLOMERULAR FILTRATION RATE > 60.0 (>60); GLUCOSE, FASTING 89 MG/DL (70-100); HDL CHOLESTEROL 47 MG/DL (>40); LDL CHOLESTEROL 127 MG/DL (<100); NON-HDL-C 144 MG/DL; POTASSIUM SERUM 4.6 MEQ/L (3.5-5.1); SODIUM LEVEL 140 MEQ/L (136-145); TOTAL PROTEIN 7.6 GM/DL (6.4-8.2); TRIGLYCERIDES LEVEL 83 MG/DL (<150)
[2020-02-20 17:26] LABS: TOTAL 25(OH) VITAMIN D 18.4 NG/ML (30.0-100.0)
== END ==
LOC: M LAB REF 16:21
PROVIDERS: ATTEND Nurse Practitioner Family
DX: Z13.9 Encounter for screening, unspecified (principal); E78.5 Hyperlipidemia, unspecified; F43.10 Post-traumatic stress disorder, unspecified; E11.9 Type 2 diabetes mellitus without complications; F41.1 Generalized anxiety disorder

== ENCOUNTER 2020-06-06 16:53 | Emergency (ER) | payer OTHER, MEDICAID ==
[~2020-06-06] VITALS: Ht 185.4 cm; Wt 75.8 kg
[~2020-06-06 16:53] MED LIST changes: -CLIN150C14 PO; +CLIN150C15 PO
[2020-06-06 16:54] VITALS: BP 126/65
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
[2020-06-06] MEDS ORDERED: ULTR50TA8 PO (20:07)
[2020-06-06] MEDS ORDERED: NORCO, ANEXSIA 5/325MG TABLET (HYDROcodone/ACETAMINOPHEN) PO ONE (20:15)
== END 2020-06-06 20:19 | disposition home or self-care (01) ==
LOC: M ED 16:53
DX: S32.059A Unspecified fracture of fifth lumbar vertebra, initial encounter for closed fracture (principal); W22.8XXA Striking against or struck by other objects, initial encounter; Y92.89 Other specified places as the place of occurrence of the external cause; Z88.8 Allergy status to other drugs, medicaments and biological substances; Z91.040 Latex allergy status; F17.210 Nicotine dependence, cigarettes, uncomplicated

== ENCOUNTER → 2020-09-01 | Outpatient (CLI) | payer OTHER ==
[~2020-09-01] MED LIST changes: +ULTR50TA8 PO
--- NOTE | 2020-09-02 08:24 | REP ---
INDICATION: FX OF 5TH LUM VERTEBRA. COMPARISON: None. TECHNIQUE: Sagittal T1, T2, STIR, axial T1 and T2 weighted MR images of the lumbar spine are choir. FINDINGS: Degenerative disc disease is limited to L5-S1 level with loss of disc height and disc desiccation. Vertebral heights are overall preserved. No malalignments. On the sagittal T2 weighted images, no significant canal stenosis. Conus ends normally at L1 level. On the review of axial images, diffuse disc bulges are seen at L1-2 through L4-5 levels without significant canal or foraminal narrowing. At L5-S1 level, consistent with the prior CT scan, there is a fracture at the inferior and anterior corner of the L5 vertebrae. No malalignments. This corner fracture does not contribute to canal or foraminal narrowing. Loss of disc height and disc desiccation results and [id number] right and moderate to severe left foraminal narrowing at this level (L5-S1). On the STIR images, there is minimal STIR signal abnormality associated with the corner fracture at L5. IMPRESSION: 1. Corner fracture at L5 is better seen on the comparison CT scan of 06/06/2020. 2. Only mild degenerative disc disease. Corner fracture does not contribute to canal or foraminal narrowing. 3. At L5-S1 degenerative disc disease results in [id number] left foraminal narrowing. <Electronically signed by Kyle Cruz > 09/02/20 [id number]
== END ==
LOC: M RAD 18:29
PROVIDERS: ATTEND Physician Assistant
DX: S32.058D Other fracture of fifth lumbar vertebra, subsequent encounter for fracture with routine healing (principal); M51.37 Other intervertebral disc degeneration, lumbosacral region; M48.07 Spinal stenosis, lumbosacral region

== ENCOUNTER 2021-05-07 18:06 | Emergency (ER) | payer OTHER ==
[~2021-05-07] VITALS: Ht 185.4 cm; Wt 80.0 kg
[~2021-05-07 18:06] MED LIST changes: -CLIN150C15 PO; +CLIN150C17 PO; +DOXY-443 PO; -DOXY100C37 PO
[2021-05-07 18:19] VITALS: BP 130/82
[2021-05-07] MEDS ORDERED: NORCO, ANEXSIA 5/325MG TABLET (HYDROcodone/ACETAMINOPHEN) PO ONE (18:30)
--- NOTE | 2021-05-07 19:19 | REP ---
INDICATION: pain, swelling, eval for DVT COMPARISON: None. TECHNIQUE: Leon scale and color Doppler evaluation using linear high frequency transducer. FINDINGS: Ultrasound examination of the left lower extremity deep venous structures from the common femoral vein through the popliteal vein demonstrates normal compressibility, flow and wave patterns in response to respiration and augmentation. Evaluation of the calf veins demonstrates normal compressibility of the peroneal and posterior tibial veins. There is no evidence for deep venous thrombosis. Contralateral CFV is patent and normal. IMPRESSION: No evidence for deep venous thrombosis. <Electronically signed by Chris Patel > 05/07/21 [id number]
== END 2021-05-07 20:13 | disposition home or self-care (01) ==
LOC: EDBD 18:06 → M ED 18:06
DX: M79.18 Myalgia, other site (principal); F31.9 Bipolar disorder, unspecified; F91.3 Oppositional defiant disorder; F90.9 Attention-deficit hyperactivity disorder, unspecified type; F41.8 Other specified anxiety disorders; Z88.8 Allergy status to other drugs, medicaments and biological substances; Z91.040 Latex allergy status; F17.210 Nicotine dependence, cigarettes, uncomplicated

== ENCOUNTER 2021-07-25 10:13 | Emergency (ER) | payer OTHER ==
[2021-07-25] MEDS ORDERED: ACETAMINOPHEN 500 MG TAB PO ONE (11:30)
[2021-07-25] MEDS ORDERED: NEOSPORIN TOP OINT 15GM TOP ONE (11:30)
[2021-07-25] MEDS ORDERED: BOOSTRIX/ADACEL VACCINE (DIPHTH/PERTUSS/ACELL/TETANUS) 0.5ML SYR IM ONE (11:30)
[2021-07-25] MEDS ORDERED: ACET-897 PO (11:39)
[2021-07-25] MEDS ORDERED: BACT800T5 PO (11:39)
[2021-07-25 11:56] VITALS: BP 134/82
== END 2021-07-25 11:57 | disposition home or self-care (01) ==
LOC: M ED 10:13
DX: S60.412A Abrasion of right middle finger, initial encounter (principal); W22.8XXA Striking against or struck by other objects, initial encounter; Y92.59 Other trade areas as the place of occurrence of the external cause; Z88.8 Allergy status to other drugs, medicaments and biological substances; Z91.040 Latex allergy status; F17.210 Nicotine dependence, cigarettes, uncomplicated

== ENCOUNTER 2022-05-26 02:55 | Emergency (ER) | payer OTHER ==
[~2022-05-26] VITALS: Ht 185.4 cm; Wt 81.4 kg
[~2022-05-26 02:55] MED LIST changes: +ACET-897 PO; +BACT800T5 PO
[2022-05-26 02:56] VITALS: BP 131/85
[2022-05-26 03:49] LABS: APPEARANCE, URINE MANUAL CLOUDY (CLEAR); COLOR, URINE MANUAL YELLOW (YELLOW)
[2022-05-26 03:50] LABS: BILIRUBIN, URINE MANUAL NEGATIVE (NEGATIVE); BLOOD URINE MANUAL TRACE (NEGATIVE); GLUCOSE, URINE (UA) MANUAL NEGATIVE (NEGATIVE); KETONE, URINE MANUAL NEGATIVE (NEGATIVE); LEUKOCYTE ESTERASE, URINE MAN POSITIVE (NEGATIVE); NITRITE, URINE MANUAL NEGATIVE (NEGATIVE); PROTEIN, URINE MANUAL NEGATIVE (NEGATIVE); UROBILINOGEN, URINE MANUAL NORMAL (NORMAL)
[2022-05-26 03:58] LABS: WBC, URINE TNTC /hpf (0-3)
[2022-05-26 03:59] LABS: SQUAMOUS EPITHELIAL CELL URINE NONE SEEN /hpf (SMALL AMT)
[2022-05-26 04:00] LABS: BACTERIA, URINE LARGE AMOUNT; HYALINE CAST, URINE NONE SEEN /lpf (0-1); MUCUS, URINE SMALL AMOUNT (NEGATIVE)
[2022-05-26 05:17] LABS: GC DNA AMPLIFICATION POSITIVE (NEGATIVE)
== END 2022-05-26 05:45 | disposition left against medical advice (07) ==
LOC: M ED 02:55
DX: Z53.21 Procedure and treatment not carried out due to patient leaving prior to being seen by health care provider (principal)

== ENCOUNTER 2023-04-24 20:28 | Emergency (ER) | payer OTHER ==
[~2023-04-24] VITALS: Ht 185.4 cm; Wt 77.8 kg
[2023-04-24 20:29] VITALS: BP 134/86; TEMP 98.6; O2SAT 98
== END 2023-04-25 | disposition left against medical advice (07) ==
LOC: M ED 20:28
DX: Z53.21 Procedure and treatment not carried out due to patient leaving prior to being seen by health care provider (principal)

== ENCOUNTER 2023-08-09 18:36 | Emergency (ER) | payer OTHER ==
[~2023-08-09] VITALS: Ht 185.4 cm; Wt 78.5 kg
[2023-08-09 21:24] VITALS: BP 130/90; TEMP 97.5; O2SAT 97
== END 2023-08-10 00:33 | disposition left against medical advice (07) ==
LOC: M ED 18:36
DX: Z53.21 Procedure and treatment not carried out due to patient leaving prior to being seen by health care provider (principal)

== ENCOUNTER 2023-08-26 17:32 | Emergency (ER) | payer OTHER ==
[~2023-08-26] VITALS: Ht 185.4 cm; Wt 81.2 kg
[2023-08-26] MEDS: LIDOCAINE 1% MDV 20ML VIAL SC ONE (19:10)
[2023-08-26] MEDS: NEOSPORIN OINT 0.9 GM PKT TOP ONE (19:10)
[2023-08-26] MEDS: BOOSTRIX VACCINE (TETANUS/DIPHTH/ACEL. PERTUSSIS) 0.5ML SYR IM ONE (19:29)
[2023-08-26] MEDS ORDERED: CEPH500C PO (20:01)
[2023-08-26] MEDS: CEPHALEXIN 500 MG CAP PO ONE (20:15)
[2023-08-26 20:27] VITALS: BP 138/87; TEMP 97.6; O2SAT 98
== END 2023-08-26 20:29 | disposition home or self-care (01) ==
LOC: M ED 17:32
DX: S51.011A Laceration without foreign body of right elbow, initial encounter (principal); M25.421 Effusion, right elbow; V18.0XXA Pedal cycle driver injured in noncollision transport accident in nontraffic accident, initial encounter; Y92.410 Unspecified street and highway as the place of occurrence of the external cause; I25.2 Old myocardial infarction; E11.9 Type 2 diabetes mellitus without complications; F17.200 Nicotine dependence, unspecified, uncomplicated; Z88.6 Allergy status to analgesic agent; Z91.040 Latex allergy status; Z23 Encounter for immunization

== ENCOUNTER 2023-09-10 17:39 | Emergency (ER) | payer OTHER ==
[~2023-09-10] VITALS: Ht 185.4 cm; Wt 83.0 kg
[2023-09-10 17:39] VITALS: BP 139/88; TEMP 96.3; O2SAT 99
[~2023-09-10 17:39] MED LIST changes: +CEPH500C PO
== END 2023-09-10 18:13 | disposition home or self-care (01) ==
LOC: M ED 17:39
DX: Z48.02 Encounter for removal of sutures (principal); Z88.6 Allergy status to analgesic agent; Z91.040 Latex allergy status

== ENCOUNTER 2023-09-13 17:39 | Emergency (ER) | payer OTHER ==
[~2023-09-13] VITALS: Ht 185.4 cm; Wt 78.5 kg
[2023-09-13 17:39] VITALS: BP 136/90; TEMP 97.2; O2SAT 97
[~2023-09-13 17:39] MED LIST changes: +DOXY-323 PO; -DOXY-443 PO
== END 2023-09-13 19:10 | disposition home or self-care (01) ==
LOC: M ED 17:39
DX: Z48.02 Encounter for removal of sutures (principal); Z88.6 Allergy status to analgesic agent; Z91.040 Latex allergy status